=== PATIENT | female | born 1985 | race Hispanic/Latino ===

== ENCOUNTER 2016-07-13 10:50 | Emergency (ER) | payer OTHER ==
[~2016-07-13] VITALS: Ht 154.9 cm; Wt 72.7 kg
[~2016-07-13 10:50] MED LIST: Hydrocodone/Acetaminophen PO; Ibuprofen PO; PREN-99 PO
[2016-07-13 11:02] VITALS: BP 105/70; PULSE 73; RESP 16; O2SAT 100
--- NOTE | 2016-07-13 11:20 | ED.REPORT ---
HPI-Headache Date of Service Jul 13, 2016 ED Provider: History of Present Illness: 31yo female awoke last night at 2am very dizzy and nauseated. Similar symptoms had occured on 07/10 and resolved spontaneously. Todays dizziness has persisted and has caused 2 episodes of emesis and blurred vision. No fever, neck pain, chest pain, SOB. LMP 1 month ago. Denies any meds or known medical problems. Nursing Notes Stated Complaint: HEADACHE,DIZZINESS,VOMITING Chief Complaint: Headache Nursing Notes Reviewed: Yes Allergies: Coded Allergies: No Known Allergies (Verified Allergy, Unknown, 02/28/08) Uncoded Allergies: KNDA (Allergy, Unknown, 12/14/04) NKA (Allergy, Unknown, 12/14/04) No Known Allergies (Allergy, Unknown, 12/14/04) Scheduled Pnv95/Ferrous Fumarate/FA ( Multivitamins Tablet) 1 Each Tablet 1 EACH PO DAILY Scheduled PRN ([Ibuprofen]) 800 MG TABLET 800 MG PO Q6 PRN PRN For Pain ([Hydrocodone/Acetaminophen]) 1 TAB TABLET 1-2 TAB PO Q3 PRN PRN For Pain General Time Seen by MD: 11:14 Chief Complaint Headache Hx Obtained From: Patient Arrived By: Walk-in Sudden in Onset?: Yes Onset Occurred: 9 - 12 hours ago Symptom Duration: Waxes and wanes Location: : Generalized Radiation: : Does not radiate Severity: Current: Mild Severity: Maximum: Moderate Associated with: Reports: Aura visual, Vertigo, Vomiting, Denies: Confusion, Difficulty speaking, Fever Pertinent Negative: Pt denies other symptoms Recent Healthcare: No recent doctor visit Similar Sx Previous: No Risk-Headache )( SAH Risk Stratification RF Statements: Risk factors reviewed )( IC Mass Risk Stratification RF Statements: No risk factors Past Medical History Past Medical History denies Past Surgical History denies Smoking History Never Smoker Social History Alcohol Use: Denies alcohol use Drug Use: Denies drug use Ambulatory Status Independent Review of Systems Constitutional: Denies: Chills, Fever Eyes: Reports: Blurred bilateral, Denies: Photophobia Ears / Nose / Throat: Denies: Ear drainage bilateral GI: Reports: Nausea, Vomiting, Denies: Abdominal pain Neurologic: Reports: Dizziness, Headache, Denies: Change LOC, Focal weakness Complete sys rev & neg: except as marked. Physical Exam Initial Vital Signs Vital Signs (First) Date Time Temp Pulse Resp B/P Pulse Ox O2 Delivery O2 Flow Rate FiO2 07/13/16 11:02 36.4 73 16 105/70 100 Room Air Initial VS: Vital signs normal General/Constitutional: Awake, Alert, No acute distress, Well appearing, Well hydrated, Not toxic appearing Head / Eyes: Atraumatic, Normocephalic, PERRL, EOMI, No nystagmus Neck: Supple, Full range of motion, No adenopathy, Non-tender Neurologic: Oriented X3, Speech NL, No motor deficits, No sensory deficits, CN II - XII intact, Memory NL, Gait NL ENT: Airway patent, Pharynx NL, Tympanic membs NL, Mastoid area NL Respiratory / Chest: Breath sounds NL, Breath sounds = bilat, No respiratory distress Cardiovascular: Heart rate NL, Regular rhythm, Heart sounds NL Abdomen: Soft, Non-tender Interpretation & Diagnostics Interpretation & Diagnostics: Urine preg = negative Lab Results Interpretation Result Diagram: 07/13/16 1217 07/13/16 1217 Test 07/13/16 11:21 07/13/16 12:17 Urine Color Yellow (YELLOW) Urine Appearance Cloudy (CLEAR,HAZY) Urine pH 6.0 (5.0-8.0) Urine Specific Concrete 1.032 (1.003-1.035) Urine Protein 30mg/dL (NEG,TRACE) Urine Glucose (UA) Negativemg/dL (NEGATIVE) Urine Ketones Negativemg/dL (NEGATIVE) Urine Occult Blood Small (NEGATIVE) Urine Nitrite Negative (NEGATIVE) Urine Bilirubin Negative (NEGATIVE) Urine Urobilinogen Normalmg/dL (NORMAL) Urine Leukocyte Esterase Negative (NEGATIVE) Urine RBC 0-2/hpf (0-2) Urine WBC 0-5/hpf (0-5) Urine Epithelial Cells Few/hpf (NONE-MOD) Urine Crystals Amorphous urates (NONE Urine Bacteria None/hpf (NONE-FEW) Urine Hyaline Casts None/lpf (NONE) Urine Granular Casts None seen (NONE SEEN) Urine Waxy Casts None seen (NONE SEEN) Urine Red Blood Cell Casts None seen (NONE SEEN) Urine White Blood Cell Casts None seen (NONE SEEN) Urine Mucus None seen (None Seen) Urine Trichomonas None seen (NONE SEEN) Urine Yeast None (NONE SEEN) Urinalysis Comment None Urine Culture Reflexed Not indicated White Blood Count 9.5th/mm3 (3.8-10.1) Red Blood Count 4.08mil/mm3 (3.90-5.20) Hemoglobin 13.1g/dL (12.0-15.6) Hematocrit 37.7% (35.0-46.0) Mean Corpuscular Volume 92.4fL (81-100) Mean Corpuscular Hemoglobin 32.1pg (27.0-35.0) Mean Corpuscular Hemoglobin Concent 34.7% (32.0-37.0) Red Cell Distribution Width 12.2% (12.3-15.4) Platelet Count 199bil/L (150-400) Neutrophils (%) (Auto) 83.5% (40-74) Lymphocytes (%) (Auto) 12.2% (14-46) Monocytes (%) (Auto) 3.8% (4-12) Eosinophils (%) (Auto) 0.2% (0-5) Basophils (%) (Auto) 0.2% (0-3) Sodium Level 141mEq/L (134-144) Potassium Level 4.0mEq/L (3.5-5.2) Chloride Level 103mEq/L (97-108) Carbon Dioxide Level 25mmol/L (18-29) Blood Urea Nitrogen 11mg/dL (6-20) Creatinine 0.56mg/dL (0.57-1.00) Estimat Glomerular Filtration Rate 180mL/min (>59) Glucose Level 100mg/dL (60-99) Calcium Level 8.7mg/dL (8.5-10.1) Total Bilirubin 0.5mg/dL (0.0-1.2) Aspartate Amino Transf (AST/SGOT) 18U/L (0-50) Alanine Aminotransferase (ALT/SGPT) 11U/L (0-32) Alkaline Phosphatase 48U/L (25-150) Total Protein 7.3g/dL (6.4-8.4) Albumin 4.0g/dL (3.4-5.0) Lipase 18U/L (13-60) ECG Interpretation Time: 14:30 Interpreted by: ED physician Normal ECG Interpretation: Normal ECG w/ rate of... (73) Re-Eval/Medical Decision Med Decision/Clinical Course Pt's symptoms resoved in ED with IV fluids and meds. Will send home with Meclizine and encouraged establishing care with [facility]. No compelling clinical indication for heat CT or spinal tap at present. S/s for which to return to ED discussed. She acknowledged understanding of treatment plan. Counseled Regarding: Diagnosis, Lab results, Need for follow-up, When/why to return to ED Discharge & Departure Shift Change Sign-Out Response to Therapy: Improved Impression: Primary Impression: Dizziness Disposition: Home Patient Instructions: Benign Paroxysmal Positional Vertigo (ED) Additional Instructions: Push fluids, take meds as needed for dizziness. Return to ER if anything worsens. Follow up with [facility] this week to establish care. Referrals: [facility] EDSupervising Provider for APC: Gutierrez Deng MD, Christopher R PAC Jul 13, 2016 11:20
[2016-07-13] MEDS ORDERED: 0.9% Sodium Chloride 1,000 ML IV ONE (11:21)
[2016-07-13] MEDS ORDERED: Ondansetron 2 mg/mL 2 mL Inj IVPUSH PRN (11:25)
[2016-07-13 12:34] LABS: BASOPHILS % (AUTO) 0.2 % (0-3); EOSINOPHILS % (AUTO) 0.2 % (0-5); MONOCYTES % (AUTO) 3.8 % (4-12); Mean Corpuscular Hemoglobin 32.1 pg (27.0-35.0); Mean Corpuscular Volume 92.4 fL (81-100); NEUTROPHILS % (AUTO) 83.5 % (40-74); Platelet Count 199 bil/L (150-400)
[2016-07-13 12:38] LABS: APPEARANCE,URINE CLOUDY (CLEAR,HAZY); COLOR,URINE YELLOW (YELLOW); OCCULT BLOOD,URINE SMALL (NEGATIVE); UROBILINOGEN,URINE NORMAL (NORMAL)
[2016-07-13] MEDS ORDERED: MECL-114 PO (14:42)
[2016-07-13 15:02] VITALS: BP 94/57; PULSE 77; RESP 16; O2SAT 99
== END 2016-07-13 15:03 | disposition home or self-care (01) ==
LOC: SED 10:50
DX: R42 Dizziness and giddiness (principal); R11.2 Nausea with vomiting, unspecified; H53.8 Other visual disturbances
CPT/HCPCS: 36415; 80053; 81000; 81025; 83690; 85025; 93005; 96361; 96374; 96375; 99285; J1200; J2405; J7030